=== PATIENT | male | born 1975 | race Caucasian/White ===

== ENCOUNTER 2023-03-20 09:13 | Inpatient (IN) | payer MEDICAID ==
[~2023-03-20] VITALS: Ht 177.8 cm; Wt 219.5 kg
--- NOTE | 2023-03-20 09:15 | NUR ---
BIB RA 878 FROM [facility] C/O LLE PAIN S/P SLIP AND FALL AT 0130 THIS MORNING. PT STATED PAIN IS 9/10 ON PAIN SCALE. ATTACHED TO MONITOR. DR DE LA GARZA AT BEDSIDE, AWAITING MD ASHER.
--- NOTE | 2023-03-20 10:38 | NUR ---
X RAY AT BEDSIDE
[2023-03-20] MEDS ORDERED: ACETAMINOPHEN ES 500 MG TABLET PO ONE (11:00)
[2023-03-20] MEDS ORDERED: ACETAMINOPHEN ES 500 MG TABLET ONE (11:07)
--- NOTE | 2023-03-20 11:42 | NUR ---
CALLED [facility] FOR TRANSPORT ETA 1929 PER POLLY.
--- NOTE | 2023-03-20 13:00 | NUR ---
PATIENT IS ABLE TO STAND W/ ASSIST BUT UNABLE TO AMBULATE EVEN WITH A WALKER. UNABLE TO BEAR WEIGHT ON AFFECTED EXTREMITY. DR DE LA GARZA MADE AWARE.
--- NOTE | 2023-03-20 13:15 | NUR ---
COVID TEST COLLECTED AND SENT
[2023-03-20] MEDS ORDERED: ONDANSETRON HCL/PF 4 MG/2 ML VIAL ONE (13:16)
[2023-03-20] MEDS ORDERED: MORPHINE SULFATE INJ 2 MG/ML DISP.SYRIN ONE (13:17)
[2023-03-20] MEDS ORDERED: MORPHINE SULFATE INJ 4 MG/ML DISP.SYRIN ONE (13:17)
[2023-03-20] MEDS ORDERED: MAG HYDROX/AL HYDROX/SIMETH 30 ML UDC PO PRN (13:30)
[2023-03-20] MEDS ORDERED: ONDANSETRON HCL/PF 4 MG/2 ML VIAL IVP PRN (13:30)
[2023-03-20] MEDS ORDERED: MAGNESIUM HYDROXIDE 30 ML UDC PO PRN (13:30)
[2023-03-20] MEDS ORDERED: MORPHINE SULFATE INJ 2 MG/ML DISP.SYRIN IV PRN (13:30)
[2023-03-20] MEDS ORDERED: ACETAMINOPHEN 325 MG TABLET PO PRN (13:30)
[2023-03-20] MEDS ORDERED: Z GUARD REMEDY 4 OZ OINT TP PRN (13:30)
[2023-03-20] MEDS ORDERED: IBUPROFEN 400 MG TABLET PO PRN (13:30)
[2023-03-20] MEDS ORDERED: MORPHINE SULFATE INJ 2 MG/ML DISP.SYRIN IV ONE (13:30)
[2023-03-20] MEDS ORDERED: ONDANSETRON HCL/PF 4 MG/2 ML VIAL IV ONE (13:30)
--- NOTE | 2023-03-20 13:30 | NUR ---
IV ESTABLISHED L FA 20G. LABS DRAWN AND COLLECTED
[2023-03-20 13:56] LABS: BASOPHILS # (AUTO) 0.1 K/uL (0.0-0.2); BASOPHILS % (AUTO) 0.7 % (0.0-2.0); EOSINOPHILS % (AUTO) 2.2 % (0.0-6.0); HEMATOCRIT 40 % (39-51); HEMOGLOBIN 12.4 g/dL (13.5-17.5); LYMPHOCYTES # (AUTO) 1.6 K/uL (0.8-4.8); LYMPHOCYTES % (AUTO) 15.5 % (20.0-44.0); MEAN CORPUSCULAR HGB CONC 31 g/dl (31.0-36.0); MEAN CORPUSCULAR VOLUME 87 fL (80-96); MONOCYTES % (AUTO) 9.6 % (2.0-12.0); NEUTROPHILS # (AUTO) 7.4 K/uL (1.8-8.9); PLATELET COUNT (AUTO) 295 K/uL (150-450); RED BLOOD CELL COUNT(AUTO) 4.53 MIL/uL (4.5-6.0); WHITE BLOOD COUNT (AUTO) 10.2 K/uL (4.3-11.0)
[2023-03-20] MEDS ORDERED: LIDO20SO13 MM (13:57)
[2023-03-20] MEDS ORDERED: EMOL113C2 TP (13:57)
[2023-03-20] MEDS ORDERED: FLUT1BLS IH (13:57)
[2023-03-20] MEDS ORDERED: TRAZ-182 PO (13:57)
[2023-03-20] MEDS ORDERED: ALBU8.5H8 IH (13:57)
[2023-03-20] MEDS ORDERED: ALBU2.5V38 IH ×2 (13:57)
[2023-03-20] MEDS ORDERED: LORA-258 PO (13:57)
[2023-03-20] MEDS ORDERED: BUME2TAB7 PO (13:57)
[2023-03-20] MEDS ORDERED: FAMO20TA8 PO (13:57)
[2023-03-20] MEDS ORDERED: TAMS-12 PO (13:57)
[2023-03-20] MEDS ORDERED: IPRA0.2S9 IH (13:57)
[2023-03-20] MEDS ORDERED: SPIR25TA6 PO (13:57)
[2023-03-20] MEDS ORDERED: ATOR10TA PO (13:57)
[2023-03-20] MEDS ORDERED: MELA5TAB PO (13:57)
[2023-03-20 14:02] LABS: CALCIUM, SERUM 8.9 mg/dL (8.5-10.1); POTASSIUM 3.3 mmol/L (3.5-5.1)
--- NOTE | 2023-03-20 15:00 | NUR ---
PT DESATVIPUL, DR ROSA AND DR DE LA GARZA AWARE. ORDERS FOR BIPAP AND ABG PLACED.
--- NOTE | 2023-03-20 15:16 | NUR ---
BIPAP SETTINGS: IPAP 25 RATE 22 I-TIME 1:00 RISE 3 EPAP 8 O2 100%
[2023-03-20 15:17] LABS: ABG BASE EXCESS -2.9 mmol/L; ABG PCO2 120.6 mmHg (35.0-45.0); ABG PH 7.035 (7.350-7.450); COHb 0.7 % (0.5-1.5); MetHb 0.4 % (0.0-1.5); SITE, ABG Right Radial; VENT MODE, BG 15L NRB
--- NOTE | 2023-03-20 15:26 | NUR ---
IV ESTABLIHSED R HAND 20G AND L HAND 20G
--- NOTE | 2023-03-20 17:13 | NUR ---
REPORT GIVEN TO ICU TO JESSICA BARROSO
--- NOTE | 2023-03-20 17:15 | NUR ---
IV ESTABLISHED R AC 18G
--- NOTE | 2023-03-20 18:11 | NUR ---
PT WAS ONLY RESPONSIVE TO PAIN DR YANG CALLED TO BEDSIDE AND DECIDED TO INTUBATE 100MG OF DIPROVAN GIVEN AT 1805 AND WAS INTUBATED AT 1810 8.0 AND 27 AT THE LIP
--- NOTE | 2023-03-20 18:26 | NUR ---
SIMON PIZARRO [phone] NURSING DIRSCTOR.
--- NOTE | 2023-03-20 18:26 | NUR ---
X RAY AT BEDSIDE, ET MOVED 2CM OUT.
--- NOTE | 2023-03-20 18:28 | NUR ---
PT HEART RATE DECLINED ATROPINE GIVEN
[2023-03-20] MEDS ORDERED: PROPOFOL 100 ML IV PRN (18:30)
--- NOTE | 2023-03-20 18:30 | NUR ---
CPR STARTED, REFER TO CARDIOPULMONARY ARREST SHEET.
--- NOTE | 2023-03-20 18:36 | NUR ---
RT NOTE PT INTUBATED POST ABG WITH 8.0 ETT 27CM @ THE LIP LINE. MD YANG AT BEDSIDE FOR INTUBATION. POSITIVE COLOR CHANGE NOTED. BILATERAL BREATH SOUNDS HEARD. PT IS CURRENTLY BEING BAGGED AND WILL BE TRANSFERRED TO ICU. Addendum: 03/20/23 at 1840 by LUANA GALEAS RT Amended: Links added.
[2023-03-20] MEDS ORDERED: EPINEPHRINE (1:10,000) SYRINGE 1 MG/10 ML DISP.SYRIN IVP ONE (18:37)
[2023-03-20] MEDS ORDERED: SODIUM BICARBONATE SYR 50 MEQ/50 ML DISP.SYRIN IV ONE (18:37)
[2023-03-20] MEDS ORDERED: ATROPINE SULFATE 1 MG/10 ML DISP.SYRIN IV ONE (18:37)
--- NOTE | 2023-03-20 18:40 | NUR ---
EXTRACORPOREAL TECHNICIAN NOTIFIED PT IS
[2023-03-20 18:46] LABS: ABG BASE EXCESS -4.8 mmol/L; ABG PCO2 187.3 mmHg (35.0-45.0); ABG PH 6.877 (7.350-7.450); ABG PO2 97.6 mmHg (75.0-100.0); COHb 0.8 % (0.5-1.5); MetHb 0.6 % (0.0-1.5); O2Hb 92.3 % (94.0-97.0); SITE, ABG Left Radial; VENT MODE, BG ST 25/8 22 100%
--- NOTE | 2023-03-20 18:52 | NUR ---
CALL [facility] AND SPOKE TO JAZ [phone], PT IS NOT A VIABLE DONOR. .
--- NOTE | 2023-03-20 18:55 | NUR ---
CALLED [facility] [phone] [facility], STATED THAT THEIR IS NO FAMILY ON FILE TO CONTACT. PT'S PRIMARY DR IS DR GERALD CHOUDHARY HIS NUMBER IS [phone] OR [phone]
--- NOTE | 2023-03-20 19:24 | NUR ---
CALLED [facility] AND SPOKE WITH Doris KIM , PT STATED THAT THEIR IS NO CASE SINCE THEIR IS NO FAMILY ON FILE. IF THERE IS NO FAMILY FOR [facility] TO PICK HIM UP
--- NOTE | 2023-03-20 20:03 | NUR ---
[facility] CALLED TO STATE THAT THE PT HAD AN EMERGENCY CONTACT JADA HOLT [phone] AND WAS NOTIFIED OF PT STATUS. STATED THAT SHE WILL COME SUNDAY.
--- NOTE | 2023-03-20 20:08 | NUR ---
CALLED DR GERALD CHOUDHARY [phone] TO INFORM HIM THAT HIS PT HAS .
--- NOTE | 2023-03-20 20:20 | NUR ---
PT BEING TRANSPORT TO [facility] [place]
[2023-03-20 20:23] VITALS: BP 0/0
[2023-03-20] MEDS ORDERED: PROPOFOL 200 MG/20 ML VIAL IV ONE (20:55)
== END 2023-03-20 18:38 | DRG 194 ==
LOC: ER 09:15 → ICU 16:42
PROVIDERS: ADMIT Internal Medicine; ATTEND Internal Medicine
PROC: 5A12012 Performance of Cardiac Output, Single, Manual (ICD-10-PCS; principal; 2023-03-20)
PROC: 0BH17EZ Insertion of Endotracheal Airway into Trachea, Via Natural or Artificial Opening (ICD-10-PCS; 2023-03-20)
PROC: 5A09357 Assistance with Respiratory Ventilation, Less than 24 Consecutive Hours, Continuous Positive Airway Pressure (ICD-10-PCS; 2023-03-20)
DX: I11.0 Hypertensive heart disease with heart failure (principal); J96.01 Acute respiratory failure with hypoxia; J96.02 Acute respiratory failure with hypercapnia; I50.9 Heart failure, unspecified; Z99.81 Dependence on supplemental oxygen; E66.2 Morbid (severe) obesity with alveolar hypoventilation; Z68.44 Body mass index [BMI] 60.0-69.9, adult; M25.552 Pain in left hip; W01.0XXA Fall on same level from slipping, tripping and stumbling without subsequent striking against object, initial encounter; Z88.0 Allergy status to penicillin; Z88.6 Allergy status to analgesic agent; Z79.51 Long term (current) use of inhaled steroids; Z79.899 Other long term (current) drug therapy; M25.562 Pain in left knee
CPT/HCPCS: 36415; 36600; 71045-TC; 73502; 73552; 73562; 73590-TC; 80048-TC; 82803-TC; 85025-TC; 85730-TC; C9803; G0378; J0171; J0461; J2270; J2405; J2704; J3490